=== PATIENT | male | born 1955 | race Two or more races ===

== ENCOUNTER 2018-09-15 09:58 | Emergency (ER) | payer MEDICAID ==
[~2018-09-15] VITALS: Ht 177.8 cm; Wt 68.0 kg
[2018-09-15 10:15] VITALS: BP 122/80
[2018-09-15] MEDS ORDERED: ONDANSETRON HCL 4MG/2ML INJ IV STA (10:33)
[2018-09-15] MEDS ORDERED: SODIUM CHLORIDE 0.9% 1,000 ML IV ONE (10:33)
[2018-09-15] MEDS ORDERED: KETOROLAC 30MG/ML VIAL IV STA (10:33)
[2018-09-15 11:20] LABS: BASOPHILS % 0.4 % (0.0-2.0); EOSINOPHILS % 1.7 % (0.0-5.0); HEMATOCRIT. 42.6 % (42.0-52.0); MEAN CORPUSCULAR HEMOGLOBIN 31.2 pg (28.0-32.0); MEAN CORPUSCULAR VOLUME 88.5 fL (80.0-94.0); MEAN PLATELET VOLUME 6.9 fl (7.4-10.4); MONOCYTES % 6.7 % (2.0-8.0); NEUTROPHILS % 78.2 % (40.0-76.0); PLATELET 193 x1000/uL (130-400); RED BLOOD CELL COUNT 4.81 mill/uL (4.7-6.1); RED CELL DISTRIBUTION WIDTH 12.9 % (11.6-14.6)
[2018-09-15 11:28] LABS: CHLORIDE 91 mEq/L (98-107)
[2018-09-15 11:35] LABS: PARTIAL THROMBOPLASTIN TIME 28.6 sec (23.4-31.0); PROTHROMBIN TIME 10.4 sec (9.1-11.1)
[2018-09-15 12:19] LABS: CLARITY URINE CLEAR (CLEAR); COLOR URINE YELLOW (YELLOW); KETONES URINE NEGATIVE (NEGATIVE); LEUKOCYTE ESTERASE URINE TRACE (NEGATIVE); NITRITE URINE NEGATIVE (NEGATIVE); OCCULT BLOOD URINE 1+ (NEGATIVE); PROTEIN URINE NEGATIVE (NEGATIVE); SPECIFIC GRAVITY URINE 1.001 (1.005-1.030); UROBILINOGEN URINE 0.2 E.U./dL (0.2-1.0)
== END 2018-09-15 14:30 | disposition home or self-care (01) ==
LOC: ER 10:26
DX: K56.41 Fecal impaction (principal); I10 Essential (primary) hypertension; R11.0 Nausea; Z87.440 Personal history of urinary (tract) infections
CPT/HCPCS: 36415; 71045; 74176; 80053; 81003; 83690; 83880; 84484; 85025; 85610; 85730; 87086; 93005; 96374; 96375; 99284; J1885; J2405; J7030; 96361; A4315